=== PATIENT | female | born 1930 | race Caucasian/White ===

== ENCOUNTER 2018-11-10 10:16 | Emergency (ER) | payer MEDICARE | END 2018-11-10 12:51 | disposition home or self-care (01) | LOC: ER FS 10:16 ==

== ENCOUNTER 2019-01-16 07:26 | Emergency (ER) | payer MEDICARE ==
[~2019-01-16 07:26] MED LIST: ASP325TEC PO; ASPI-999 PO; C,E,1CAP PO; CHOL10002 PO; CITA10TA12 PO; CRAN200C PO; HYDR12.5 PO; LEVO75TA PO; Levofloxacin PO; Lisinopril PO; MEMA10TA2 PO; Multivitamins/Minerals Therap PO; NF-VITB12 PO; PNT40TEC PO; Senna PO; Tramadol Hcl PO
[2019-01-16] MEDS ORDERED: TETANUS,DIPTH,PERTUSS P/F (BOOSTRIX) 0.5 ML VIAL IM ONE (07:45)
[2019-01-16] MEDS ORDERED: BACITRACIN OINTMENT 28 GM TUBE TOP SCH (07:45)
--- NOTE | 2019-01-16 07:52 | ED Trauma-Multisystem ---
General Chief Complaint: Trauma-Non Activation Stated Complaint: FALL History of Present Illness Date Seen by Provider: Jan 16, 2019 Time Seen by Provider: 07:20 Initial Comments The patient is an 88-year-old female who resides at a [facility] and has a history of hypertension, hypothyroidism and rather advanced dementia. She appears to be oriented to her name only at baseline. She is not on any blood thinners. She presents with concern for an apparent ground-level fall occurring prior to arrival at her nursing facility. Patient was found down beside her standing recliner with a skin tear on her arm and scrapes on her face. It appears she may have scraped her face on her recliner or on the rug on the floor. Unknown down time per facility staff. The patient is alert and interactive and answers questions consistent with her baseline and does move all extremities and denies pain anywhere. There are no signs of trauma aside from to the areas noted above. Cervical collar placed upon arrival. Unknown tetanus status. Allergies and Home Medications Allergies Coded Allergies: No Known Drug Allergies (Unverified , 02/06/14) Home Medications Aspirin 81 Mg Tab.chew, 81 MG PO DAILY, (Reported) C,E,Zinc,Copper 11/Kxhtp2c/Lut 1 Each Capsule, 1 EACH PO DAILY, (Reported) Cholecalciferol 1,000 Unit Tab, 1,000 UNIT PO DAILY Prescribed by: FIDELIA MUNSON on 04/13/14826 Citalopram Hydrobromide 10 Mg Tablet, 10 MG PO DAILY, (Reported) Cranberry Extract 200 Mg Capsule, 200 MG PO DAILY, (Reported) Cyanocobalamin 500 Mcg Tab, 1,000 MCG PO DAILY Prescribed by: FIDELIA MUNSON on 04/13/14826 Hydrochlorothiazide 12.5 Mg Capsule, 12.5 MG PO DAILY, (Reported) Levothyroxine Sodium 75 Mcg Tablet, 75 MCG PO DAILY@0630 Prescribed by: FIDELIA MUNSON on 04/13/14826 Memantine HCl 10 Mg Tablet, 10 MG PO BID, (Reported) [Lisinopril] 20 MG TAB, 20 MG PO BID Prescribed by: FIDELIA MUNSON on 04/13/14826 Patient Home Medication List Home Medication List Reviewed: Yes Review of Systems Review of Systems Constitutional: see HPI All Other Systems Reviewed Negative Unless Noted: Yes (Negative excepted noted.) Past Hqcxdhj-Ucibhf-Swymgj Hx Past Med/Social Hx: Reviewed Nursing Past Med/Soc Hx Patient Social History 2nd Hand Smoke Exposure: No Recent Hopitalizations: No Immunizations Up To Date Tetanus Booster (TDap): Unknown PED Vaccines UTD: No Date of Pneumonia Vaccine: Nov 29, 2011 Date of Influenza Vaccine: Jan 14, 2018 Seasonal Allergies Seasonal Allergies: No Past Medical History Surgeries: Yes (left hip replacement) Orthopedic Respiratory: No Cardiac: Yes Hypertension Neurological: No Reproductive Disorders: No Female Reproductive Disorders: Denies Sexually Transmitted Disease: No HIV/AIDS: No Genitourinary: Yes (Overactive bladder) Gastrointestinal: No Musculoskeletal: Yes Rheumatoid Arthritis Endocrine: Yes Hypothyroidsim Loss of Vision: Denies Hearing Impairment: Denies Cancer: No Psychosocial: No Integumentary: No Blood Disorders: No Adverse Reaction/Blood Tranf: No Family Medical History Reviewed Nursing Family Hx Alzheimer's disease Arthritis Cataracts Completed stroke Dementia Glaucoma Hypercholesterolemia Hypertension Visual disorder No Family History of: AIDS Abdominal aortic aneurysm [place]'s disease Alcoholism Aphasia Asthma Cancer of mouth Cardiovascular disease Colon cancer Congenital disease Congenital heart disease Coronary thrombosis Cystic fibrosis Deafness or hearing loss Diabetes mellitus Drug abuse Dysphasia Fibrocystic disease of breast Gastroenteritis Headache disorder Infertility Kidney disease Myocardial infarction Neoplasm Not obtainable due to adoption Osteoporosis Parkinson's disease Prostate cancer Psychosocial problem Respiratory disorder Seizure disorder Severe allergy Thyroid disease Tuberculosis Hypertension Physical Exam Vital Signs Vital Signs - First Documented 01/16/19 07:30 Temp 36.0 Pulse 82 Resp 16 B/P (MAP) 98/50 (66) Pulse Ox 100 Height, Weight, BMI Height: 5'0" Weight: 162lbs. 4.0oz. 73.993537rm; BMI Method:Actual General Appearance: No Apparent Distress This is a very elderly female appearing nontoxic and in no acute distress. Head is normocephalic and with very superficial abrasions noted to much of the bilateral face. No hemotympanum bilaterally and no signs of basilar fracture appreciated. No instability of the midface or dental injury or other oropharyngeal abnormality noted. Oropharynx is moist. Lungs are clear to auscultation in all stations. There is a normal S1 and S2 without rubs or gallops and capillary refill is appropriate, less than 2 seconds globally. Abdomen is soft, nontender and nondistended. Skin is warm and dry without cyanosis, clubbing or edema. Psychiatrically, the patient given strict appropriate mood and affect and is alert. From a neurologic standpoint, patient moves all extremities equally, is alert and interactive and answers questions consistent with her baseline (oriented 1) and no lateralizing deficits are grossly noted. Examination of bilateral arms and legs reveals no pain with ranging to any joint of the bilateral upper or lower extremities. There is a minimal 1.5 cm diameter skin tear to the dorsal aspect of the left forearm. Bilateral upper and lower extremities are neurovascularly intact. Progress/Results/Core Measures Results/Orders Lab Results Laboratory Tests Test 01/16/19 07:10 Range/Units White Blood Count 10.0 4.3-11.0 10^3/uL Red Blood Count 4.43 4.35-5.85 10^6/uL Hemoglobin 13.9 11.5-16.0 G/DL Hematocrit 43 35-52 % Mean Corpuscular Volume 96 80-99 FL Mean Corpuscular Hemoglobin 31 25-34 PG Mean Corpuscular Hemoglobin Concent 33 32-36 G/DL Red Cell Distribution Width 13.5 10.0-14.5 % Platelet Count 245 130-400 10^3/uL Mean Platelet Volume 11.0 H 7.4-10.4 FL Neutrophils (%) (Auto) 77 H 42-75 % Lymphocytes (%) (Auto) 18 12-44 % Monocytes (%) (Auto) 4 0-12 % Eosinophils (%) (Auto) 0 0-10 % Basophils (%) (Auto) 1 0-10 % Neutrophils # (Auto) 7.7 1.8-7.8 X 10^3 Lymphocytes # (Auto) 1.8 1.0-4.0 X 10^3 Monocytes # (Auto) 0.4 0.0-1.0 X 10^3 Eosinophils # (Auto) 0.0 0.0-0.3 10^3/uL Basophils # (Auto) 0.1 0.0-0.1 10^3/uL Sodium Level 137 135-145 MMOL/L Potassium Level 4.6 3.6-5.0 MMOL/L Chloride Level 102 98-107 MMOL/L Carbon Dioxide Level 23 21-32 MMOL/L Anion Gap 12 5-14 MMOL/L Blood Urea Nitrogen 27 H 7-18 MG/DL Creatinine 1.07 0.60-1.30 MG/DL Estimat Glomerular Filtration Rate 48 BUN/Creatinine Ratio 25 Glucose Level 144 H 70-105 MG/DL Calcium Level 9.5 8.5-10.1 MG/DL Corrected Calcium 9.3 8.5-10.1 MG/DL Total Bilirubin 0.4 0.1-1.0 MG/DL Aspartate Amino Transf (AST/SGOT) 22 5-34 U/L Alanine Aminotransferase (ALT/SGPT) 17 0-55 U/L Alkaline Phosphatase 74 40-136 U/L Total Protein 7.3 6.4-8.2 GM/DL Albumin 4.2 3.2-4.5 GM/DL My Orders Orders - DIAMOND WARD MD Cbc With Automated Diff (01/16/19 07:34) Comprehensive Metabolic Panel (01/16/19 07:34) Creatine Kinase (01/16/19 07:34) Cervical Collar: Apply (01/16/19 07:34) Dipht,Pertuss(Acell),Tet Adult (Boostrix (01/16/19 07:45) Acetaminophen Tablet/Caplet (Tylenol T (01/16/19 07:45) Bacitracin Ointment (Bacitracin Ointment (01/16/19 07:45) Ct Head/Face/Cervical Wo (01/16/19 07:34) Medications Given in ED Current Medications Medications Dose Ordered Sig/Aure Route Start Time Stop Time Status Last Admin Dose Admin Acetaminophen 975 mg ONCE ONCE PO 01/16/19 07:45 01/16/19 07:46 DC 01/16/19 08:03 975 MG Diphtheria/ Tetanus/Acell Pertussis 0.5 ml ONCE ONCE IM 01/16/19 07:45 01/16/19 07:46 DC 01/16/19 08:04 0.5 ML Vital Signs/I&O 01/16/19 07:30 Temp 36.0 Pulse 82 Resp 16 B/P (MAP) 98/50 (66) Pulse Ox 100 Progress Progress Note : Time: 07:52 Progress Note Vital signs and clinical examination quite reassuring. Elderly female with dementia found down beside her bed with minimal signs of trauma to her face. C- collar applied. Given unknown downtime we'll check basic labs and CPK and will update tetanus and will clean and disinfect wounds and we'll check advanced kerwin ging as noted. If workup is reassuring, plan for likely discharge back to the patient's nursing facility to follow up very closely with primary care. Update 0920: Patient is resting comfortably upon reassessment with at bedside. Labs and advanced imaging of head, maxillofacial region and cervical spine unremarkable and reassuring. Cervical spine cleared. We will proceed with discharge back to the patient's facility at this time. is counseled that the patient should follow-up in the next 1-2 days with primary care in the clinic and should return immediately if symptoms worsen or if other new symptoms of concern develop. He understands and agrees. All questions are answered. Comment Sinus rhythm, rate 69, no acute ST elevation or depression, SD 173, QRS 95, QTc 446, EP interpretation. Departure Impression Primary Impression: Fall from chair, initial encounter Additional Impressions: Skin tear of left upper extremity Abrasion or friction burn of face without infection Disposition: 01 HOME, SELF-CARE Condition: Improved Departure-Patient Inst. Referrals: SELF,UQIANA EWING (PCP/Family) Primary Care Physician Patient Instructions: Skin Abrasions, Minor Head Injury (DC) DIAMOND WARD MD Jan 16, 2019 07:52
[2019-01-16 07:57] LABS: BASOPHILS % (AUTO) 1 % (0-10); EOSINOPHILS % (AUTO) 0 % (0-10); HEMATOCRIT 43 % (35-52); HEMOGLOBIN 13.9 G/DL (11.5-16.0); LYMPHOCYTES # (AUTO) 1.8 X 10^3 (1.0-4.0); LYMPHOCYTES % (AUTO) 18 % (12-44); MEAN CORPUSCULAR HEMOGLOBIN 31 PG (25-34); MEAN CORPUSCULAR HGB CONC 33 G/DL (32-36); MEAN CORPUSCULAR VOLUME 96 FL (80-99); MONOCYTES % (AUTO) 4 % (0-12); NEUTROPHILS # (AUTO) 7.7 X 10^3 (1.8-7.8); NEUTROPHILS % (AUTO) 77 % (42-75); PLATELET COUNT 245 10^3/uL (130-400); RED CELL DISTRIBUTION WIDTH 13.5 % (10.0-14.5)
[2019-01-16 07:58] LABS: BASOPHILS # (AUTO) 0.1 10^3/uL (0.0-0.1); MONOCYTES # (AUTO) 0.4 X 10^3 (0.0-1.0)
[2019-01-16] MEDS: ACETAMINOPHEN 325 MG TABLET PO ONE ×2 (08:03→10:19)
[2019-01-16 08:20] LABS: BILIRUBIN,TOTAL 0.4 MG/DL (0.1-1.0); CALCIUM 9.5 MG/DL (8.5-10.1); CREATININE SERUM 1.07 MG/DL (0.60-1.30); POTASSIUM 4.6 MMOL/L (3.6-5.0)
[2019-01-16 08:21] LABS: ALBUMIN 4.2 GM/DL (3.2-4.5); TOTAL PROTEIN 7.3 GM/DL (6.4-8.2)
--- NOTE | 2019-01-16 08:58 | Diagnostic Imaging Report ---
PROCEDURE: CT head, face, and cervical spine without contrast. TECHNIQUE: Multiple contiguous axial images were obtained through the head, neck, and facial bones without the use of intravenous contrast. Sagittal and coronal reformations through the cervical spine and facial bones were also performed. Auto Exposure Controls were utilized during the CT exam to meet ALARA standards for radiation dose reduction. INDICATION: Fall. Correlation is made with prior head CT from 11/10/2018. CT head: There is marked prominence of ventricles and sulci consistent with age-related atrophy. This is similar to prior exam. Moderate periventricular hypodensity is noted consistent with senescent change. No sulcal effacement or midline shift is identified. No acute intra-axial or extra-axial hemorrhage is detected. Cisterns are patent. Visualized paranasal sinuses are clear. IMPRESSION: Senescent changes. No acute intracranial process is detected. CT cervical spine: Curvature and alignment of the cervical spine is normal. There is multilevel degenerative disc disease with variable disc space narrowing and marginal spurring. No fracture or subluxation is seen. Prevertebral tissues are within normal limits. Odontoid is intact. IMPRESSION: Cervical spondylosis. No acute bony abnormality is detected. CT face: There is some mild soft tissue swelling in the left frontal scalp. The mandible appears intact. Zygomatic arches are intact. Maxillary sinus lacey, nasal bones and orbital lacey appear to be intact. No facial bone fracture is seen. IMPRESSION: Mild left frontal scalp swelling. No facial bone fracture is detected. Dictated by: Dictated on workstation # [id number]
--- NOTE | 2019-01-16 09:31 | NUR ---
Informed [facility] that patient is being discharged back.
--- NOTE | 2019-01-16 10:05 | NUR ---
Called Elvia at [facility] to ask about transportation for patient back to their facility. States they will need to use the ambulance since family is not here. This RN informed Elvia that she would need to call in the request for ambulance.
[2019-01-16 10:18] VITALS: BP 104/63
== END 2019-01-16 10:21 | disposition home or self-care (01) ==
LOC: EDUNIT# 07:26 → ER FS 07:27
DX: S51.812A Laceration without foreign body of left forearm, initial encounter (principal); S00.81XA Abrasion of other part of head, initial encounter; I10 Essential (primary) hypertension; E03.9 Hypothyroidism, unspecified; F03.90 Unspecified dementia, unspecified severity, without behavioral disturbance, psychotic disturbance, mood disturbance, and anxiety; M06.9 Rheumatoid arthritis, unspecified; Z79.82 Long term (current) use of aspirin; Z96.642 Presence of left artificial hip joint; Z82.49 Family history of ischemic heart disease and other diseases of the circulatory system; W07.XXXA Fall from chair, initial encounter; Y92.129 Unspecified place in nursing home as the place of occurrence of the external cause
CPT/HCPCS: 36415; 70450; 70486; 72125; 80053; 82550; 85025; 90715